=== PATIENT | female | born 1985 | race Caucasian/White ===

== ENCOUNTER → 2021-01-29 13:58 | Outpatient (BNVA) | payer BC, OTHER, SELFPAY | PROVIDERS: PCP Obstetrics & Gynecology; Referring Provider Nurse Practitioner Family; Visit Provider Specialist | DX: M79.7 Fibromyalgia (principal); M54.2 Cervicalgia; M54.9 Dorsalgia, unspecified; E66.3 Overweight; Z68.41 Body mass index [BMI] 40.0-44.9, adult | CPT/HCPCS: 99205 ==